=== PATIENT | male | born 1960 | race Two or more races ===

== ENCOUNTER 2016-08-09 02:19 | Inpatient (IN) | payer MEDICAID ==
[~2016-08-09] VITALS: Ht 172.7 cm; Wt 146.1 kg
--- NOTE | 2016-08-09 02:40 | NUR ---
PT BIBRA FROM HOME W/ CP OF R FOOT TENDERNESS, L LAT ABD PAIN AND L LATERAL CHEST PAIN WHEN PRESSURE IS APPLIED OF 5/10, NON RADIATING. STATES THAT PAIN HAS BEEN THERE SINCE YESTERDAY AM. A/OX4. ON MONITOR W/ SR 70'S. DENIES ANY PALPITATIONS, DIZZINESS OR N/V. DR CARRIZALES AT [facility] FOR EVALUATION.
--- NOTE | 2016-08-09 02:50 | NUR ---
Kodi rodriguez in [place] - 08/09/16 at 0305 by SCARLET RADHA MEADOWS IN [place] [address] G[address] ARORA
--- NOTE | 2016-08-09 02:50 | NUR ---
INSERT IV IN R AC 18 G. TOLERATED WELL.
[2016-08-09 02:57] LABS: BASOPHILS % (AUTO) 0.8 % (0.0-2.0); EOSINOPHILS # (AUTO) 0.3 /CMM (0.0-0.7); EOSINOPHILS % (AUTO) 4.3 % (0.0-6.0); HEMATOCRIT 28 % (39-51); LYMPHOCYTES # (AUTO) 1.1 /CMM (0.8-4.8); LYMPHOCYTES % (AUTO) 19.1 % (20.0-44.0); MEAN CORPUSCULAR HEMOGLOBIN 28 PG (26.0-33.0); MEAN CORPUSCULAR HGB CONC 32 g/dl (31.0-36.0); MEAN CORPUSCULAR VOLUME 87 fL (80-96); MONOCYTES # (AUTO) 0.7 /CMM (0.1-1.30); MONOCYTES % (AUTO) 11.6 % (2.0-12.0); NEUTROPHILS # (AUTO) 3.8 /CMM (1.8-8.9); NEUTROPHILS % (AUTO) 64.2 % (43.0-81.0); PLATELET COUNT (AUTO) 159 /CMM (150-450); RDW COEFFICIENT OF VARIATION 16.2 (11.5-15.0); WHITE BLOOD COUNT (AUTO) 5.9 K/uL (4.3-11.0)
--- NOTE | 2016-08-09 03:00 | NUR ---
RADIOLOGY AT BEDSIDE FOR CXR
[2016-08-09 03:06] LABS: CALCIUM, SERUM 8.8 mg/dL (8.5-10.1); CARBON DIOXIDE 21 mmol/L (21-32); CHLORIDE 101 mmol/L (98-107); CREATININE 1.8 mg/dL (0.6-1.3); GFR 39 mL/min (>60); GLUCOSE 99 mg/dL (74-106); POTASSIUM 4.2 mmol/L (3.5-5.1); SODIUM SERUM 134 mmol/L (136-145); UREA NITROGEN, BLOOD 18 mg/dL (7-18)
[2016-08-09 03:14] LABS: INR 1.11 (0.87-1.13)
[2016-08-09 03:16] LABS: TROPONIN I < 0.017 ng/mL (0.00-0.056)
[2016-08-09 03:18] LABS: ALANINE AMINOTRANSFERASE 54 U/L (12-78); ALBUMIN 2.7 g/dL (3.4-5.0); ALKALINE PHOSPHATASE 628 U/L (46-116); ASPARTATE AMINOTRANSFERASE 74 U/L (15-37); B-TYPE NATRIURETIC PEPTIDE 111 PG/ML (0-125); BILIRUBIN,DIRECT 0.3 mg/dL (0.0-0.2); BILIRUBIN,TOTAL 0.8 mg/dL (0.2-1.0); TOTAL PROTEIN, SERUM 7.5 g/dL (6.4-8.2)
--- NOTE | 2016-08-09 03:34 | NUR ---
TELE/RN NOTES RECEIVED REPORT FROM DAIRY BACTERIOLOGIST FOR PATIENT 54 YO OBESE MALE WHO CAME TO ER FOR LEFT SIDE CHEST PAIN W/ PRESSURE AND COMPALINED OF LEFT ABD PAIN AND CHRONIC LOWER EXTREMITY LEFT FOOT PAIN. W/ HX OF HLD, LIVER CIRRHOSIS, CANCER, HTN HX GI BLEED. DR URENA, [facility] RECEIVED. TROPONIN LEVEL 0.17 NORMAL,EKG NSR 67 BPM, CHEST XRAY PENDING, ON TELE, USES URINAL. ALERT,ORIENTED X4. WITH IV ON RIGHT AC.
--- NOTE | 2016-08-09 03:35 | NUR ---
TELE/RN NOTES PATIENT IS ALERT, ORIENTEDX3, ABLE TO VERBALIZE NEEDS ACCOMPANIED BY FAMILY MEMBER. ROOM ORIENTATION PROVIDED,SIDE RAIL, SKIN BODY ASSESSMENT, BELONGINGS CHECKED, NO S/S OF SOB OR DISCOMFORT, NO PAIN OBSERVED ABD VERBALIZED. MD TO PRISCILLA FOR HOME MEDICATION RECONCILIATION OF ORDER WILL REVIEW PER MD. REQUIRE WOUND CONSULT , PT [email or web address].WILL CONTINUE TO MONITOR.
--- NOTE | 2016-08-09 03:35 | NUR ---
REPORT GIVEN TO BILLY FOLEY FOR CONTINUATION OF CARE.
--- NOTE | 2016-08-09 03:47 | NUR ---
TRANSFERRED PT VIA TAIRTONY TO RM 312-2 ON ACLS PROTOCOL IN STABLE CONDITION
[2016-08-09] MEDS ORDERED: FURO40TA5 PO (04:28)
[2016-08-09] MEDS ORDERED: ZINC220C6 PO (04:28)
[2016-08-09] MEDS ORDERED: SPIR100T3 PO (04:28)
[2016-08-09] MEDS ORDERED: PROP10TA10 PO (04:28)
[2016-08-09] MEDS ORDERED: POLY17PO4 PO (04:28)
[2016-08-09] MEDS ORDERED: SENN8.6T6 PO (04:28)
[2016-08-09] MEDS ORDERED: LEVE500T9 PO (04:28)
[2016-08-09] MEDS ORDERED: LACT10SO PO (04:28)
[2016-08-09] MEDS ORDERED: PANT40TA4 PO (04:28)
[2016-08-09] MEDS ORDERED: AMLO10TA2 PO (04:28)
[2016-08-09 04:34] VITALS: BP 98/55
--- NOTE | 2016-08-09 05:00 | NUR ---
TELE/RN NOTES MD CONTACTED FOR RECONCILIATION OF HOME MEDS AND ORDER.
[2016-08-09] MEDS ORDERED: DOCUSATE SODIUM 100 MG CAPSULE PO PRN (06:00)
[2016-08-09] MEDS ORDERED: NITROGLYCERIN 0.4 MG/TAB BOTTLE SL PRN (06:00)
[2016-08-09] MEDS ORDERED: MORPHINE SULFATE INJ 2 MG/ML DISP.SYRIN IV PRN ×2 (06:00)
[2016-08-09 06:01] LABS: IRON, SERUM 30 ug/dl (50-175); TOTAL IRON BINDING CAPACITY 291 ug/dl (250-450)
--- NOTE | 2016-08-09 07:00 | NUR ---
TELE/RN NOTES PATIENT IN BED, AWAKE, ALERT X3, ABLE TO VERBALIZE NEEDS. PROVIDED COMFORT. NO S/S OF SOB OR DISTRESS. CALL LIGHTS WITHIN REACH. ENDORSE TO M RN ALEX.
--- NOTE | 2016-08-09 07:23 | NUR ---
MACHINE PLASTER MIXER OPENING NOTES RECEIVED PT FROM NIGHTSHIFT NURSE IN STABLE CONDITION. PT. AWAKE AND RESTING IN BED. A/O X4. NO SOB OR SIGNS OF DISTRESS NOTED. NO COMPLAINTS OF CHEST PAIN AT THIS TIME. ON TELE MONITOR READING SINUS RHYTHM, HR 80. IV ON RIGHT AC 18G INTACT AND PATENT. WILL CONTINUE TO MONITOR.
[2016-08-09 07:27] VITALS: BP 132/62
[2016-08-09 08:00] VITALS: BP 132/69
--- NOTE | 2016-08-09 08:24 | NUR ---
WOUND CARE CONSULT: PATIENT SEEN AND SKIN ASSESSMENT DONE. PATIENT ALERT, ORIENTED, INDEPENDENT WITH BED MOBILITY, GUERO 16, WEIGHS 322 LBS, BARIMAXX BED ORDERED. SEE TODAY'S SKIN ASSESSMENT IN PCS ALONG WITH RECOMMENDATIONS DISCUSSED WITH NURSING STAFF INCLUDING MOISTURE PROTECTION WITH Z GUARD ORDERED. MD IN AGREEMENT WITH PLAN OF CARE. Addendum: 08/09/16 at 0826 by CHERELLE LAWSON WNDNU Amended: Links added.
[2016-08-09] MEDS ORDERED: Z GUARD REMEDY 2 OZ OINT TP PRN (08:30)
[2016-08-09] MEDS: LACTULOSE 10 G/15 ML UDC (PYXIS) PO SCH ×4 (08:47→21:10)
[2016-08-09] MEDS: PANTOPRAZOLE 40 MG TABLET.DR PO SCH ×2 (08:49→21:10)
[2016-08-09] MEDS: LEVETIRACETAM (250 MG) 250 MG TABLET PO SCH ×2 (08:49→21:10)
[2016-08-09] MEDS: SPIRONOLACTONE 25 MG TABLET PO SCH (08:51)
[2016-08-09] MEDS: AMLODIPINE BESYLATE 10 MG TABLET PO SCH (08:53)
[2016-08-09] MEDS: ZINC SULFATE 220 MG CAPSULE PO SCH (08:54)
[2016-08-09] MEDS: POLYETHYLENE GLYCOL 3350 17 GM POWD.PACK PO SCH (08:54)
[2016-08-09] MEDS: SENNOSIDES 8.6 MG TABLET PO SCH (08:54)
[2016-08-09] MEDS ORDERED: ASPIRIN 81 MG TAB.CHEW PO SCH (09:00)
[2016-08-09] MEDS: PROPRANOLOL HCL 10 MG TABLET PO SCH ×2 (09:00→17:25)
[2016-08-09 11:50] LABS: GAMMA GLUTAMYL TRANSFERASE 471 U/L (5-85); PROSTATE SPECIFIC ANTIGEN SCR < 0.13 ng/mL (0.00-4.00)
[2016-08-09 12:00] VITALS: BP 100/62
--- NOTE | 2016-08-09 13:17 | NUR ---
PT IS TOO LARGE TO FIT INTO CT SCANNER, RN IS AWARE.
--- NOTE | 2016-08-09 13:24 | NUR ---
CONTINUOUS MINING MACHINE COMPANY MINER NOTES CT SCAN WAS CANCELLED. PT COULD NOT FIT IN MACHINE. DR. WONG WAS MADE AWARE. WILL CONTINUE TO MONITOR.
[2016-08-09] MEDS ORDERED: IV SET PRIMARY PUMP SET 1 EA INFUS.SET MC ONE (13:34)
[2016-08-09] MEDS: Z GUARD REMEDY 2 OZ OINT TP SCH ×2 (14:25→17:24)
[2016-08-09] MEDS: SOD FERRIC GLUC 125 MG in IV NS 0.9% 100 ML IV SCH (14:25)
[2016-08-09 16:00] VITALS: BP 98/60
--- NOTE | 2016-08-09 18:40 | NUR ---
BANK CASHIER CLOSING NOTES PT IN STABLE CONDITION, SITTING IN BED. A/O X4. NO SOB OR SIGNS OF DISTRESS NOTED. NO COMPLAINTS OF CHEST PAIN AT THIS TIME. ON TELE MONITOR READING SINUS RHYTHM, HR 79. IV ON RIGHT AC 18G INTACT AND PATENT. BARIMAX BED IN LOW LOCKED POSITION, SIDE RAILS UP X2, CALL LIGHT WITHIN PT. REACH. ALL SAFETY NEEDS WERE ENFORCED THROUGHOUT SHIFT. ALL ORDERS WERE CARRIED OUT DURING SHIFT. WILL ENDORSE TO NIGHTSHIFT NURSE FOR ALEX .
--- NOTE | 2016-08-09 19:35 | NUR ---
VIDEOGAME TESTER NOTE RECEIVED PATIENT FRO DAY SHIFT, PATIENT IS ALERT AND ORIENTEDX4, DENIES SOB OR PAIN AT THIS TIME. IV ON RIGHT AC IS PATENT AND INTACT, HL. TELE MONITOR SR WITH PVX 76. LEXISCAN DUE TOMORROW, CONSENT SIGNED. PATIENT IS NOW ON A BARIATRIC BED. SRX2, BED IN LOW POSITION, CALL LIGHT WITHIN REACH, WILL CONTINUE TO MONITOR PATIENT.
[2016-08-09 20:00] VITALS: BP 92/52
[2016-08-09] MEDS: SIMVASTATIN 20 MG TABLET PO SCH (21:11)
--- NOTE | 2016-08-09 21:30 | NUR ---
HYDROGEN POWER PLANT MANAGER NOTE DUE MEDS GIVEN, AND REPORT GIVEN TO BILLY COLON FOR ALEX DUE TO CHANGE OF ASSIGNMENT.
--- NOTE | 2016-08-09 21:35 | NUR ---
RELATIONS MGR NOTES: RECEIVED PATIENT DUE TO CHANGE OF ASSIGNMENT FROM RN CHELSEA PACE. PT IS A/O X4 AND IS LAYING IN BED. ON TELE MONITOR AND IS SINUS RHYTHM; PVC @76. PT KEPT CLEAN, DRY, AND COMFORTABLE. CALL LIGHT WITHIN PT'S REACH. BED IN LOCKED, LOWEST POSITION, AND SIDE RAILS X2 UP. NO SOB OR SIGNS AND SYMPTOMS OF DISTRESS NOTED. IV ON R AC #18G AND IS PATENT AND INTACT. PT ON NS 75 ML/HR. PT IS NPO POST MIDNIGHT. WILL CONTINUE TO MONITOR PT.
[2016-08-09] MEDS: IV NS 0.9% 1,000 ML IV PRN (23:50)
[2016-08-10] VITALS (7 sets, daily range): BP systolic 94–137; BP diastolic 53–77
[2016-08-10 06:53] LABS: BASOPHILS % (AUTO) 1.2 % (0.0-2.0); EOSINOPHILS # (AUTO) 0.2 /CMM (0.0-0.7); EOSINOPHILS % (AUTO) 4.4 % (0.0-6.0); HEMATOCRIT 26 % (39-51); HEMOGLOBIN 8.5 g/dL (13.5-17.5); LYMPHOCYTES # (AUTO) 0.7 /CMM (0.8-4.8); MEAN CORPUSCULAR HEMOGLOBIN 29 PG (26.0-33.0); MEAN CORPUSCULAR HGB CONC 33 g/dl (31.0-36.0); MEAN CORPUSCULAR VOLUME 87 fL (80-96); MONOCYTES # (AUTO) 0.5 /CMM (0.1-1.30); MONOCYTES % (AUTO) 11.6 % (2.0-12.0); NEUTROPHILS # (AUTO) 2.7 /CMM (1.8-8.9); NEUTROPHILS % (AUTO) 64.8 % (43.0-81.0); PLATELET COUNT (AUTO) 123 /CMM (150-450); RDW COEFFICIENT OF VARIATION 16.2 (11.5-15.0); WHITE BLOOD COUNT (AUTO) 4.2 K/uL (4.3-11.0)
--- NOTE | 2016-08-10 07:01 | NUR ---
FUR REPAIR INSPECTOR CLOSING NOTES: PATIENT LAYING IN BED AWAKE. NO SIGNS OR SYMPTOMS OF DISTRESS OR SOB NOTED. ON TELE MONITOR AND IS SINUS RHYTHM @82. PT KEPT CLEAN, DRY, AND COMFORTABLE. CALL LIGHT WITHIN PT'S REACH. BED KEPT IN LOCKED, LOWEST POSITION, AND SIDE RAILS X2 UP. PT ON BARAITRIC BED. IV ON R AC #18G AND IS PATENT AND INTACT. L[place]ISCAN DUE THIS MORNING. CONSENT HAS BEEN SIGNED. WILL ENDORSE TO AM NURSE FOR CONTINUITY OF CARE.
--- NOTE | 2016-08-10 07:13 | NUR ---
GRINDER GEAR OPENING NOTES RECEIVED PATIENT AWAKE IN BED IN NO ACUTE SIGNS OF DISTRESS. ALERT AND ORIENTED X4. ABLE TO VERBALIZED NEEDS, NO COMPLAINTS OF PAIN OR DISCOMFORTS AT THIS TIME. ON TELE MONITORING WITH READINGS OF SINUS RHYTHM, HR 78. NO COMPLAINTS OF CHEST PAIN. IV ON RIGHT AC 18G INTACT AND PATENT WITH IVF OF NS AT 75ML/HR INFUSING WELL, NO SIGNS OF INFILTRATION NOTED. PATIENT IS ON NPO FOR STRESS TEST THIS MORNING. CALL LIGHT WITHIN REACH. BED LOCKED AND AT LOWEST POSSIBLE POSITION. WILL CONTINUE TO MONITOR ACCORDINGLY.
[2016-08-10 07:15] LABS: ALBUMIN 2.5 g/dL (3.4-5.0); BILIRUBIN,TOTAL 0.7 mg/dL (0.2-1.0); CALCIUM, SERUM 8.5 mg/dL (8.5-10.1); CREATININE 1.5 mg/dL (0.6-1.3); MAGNESIUM 1.8 mg/dL (1.8-2.4); PHOSPHORUS 4.4 mg/dL (2.5-4.9); POTASSIUM 3.8 mmol/L (3.5-5.1); TOTAL PROTEIN, SERUM 7.1 g/dL (6.4-8.2)
[2016-08-10 07:21] LABS: INR 1.11 (0.87-1.13)
[2016-08-10] MEDS ORDERED: REGADENOSON 0.4 MG/5 ML DISP.SYRIN IVP ONE (08:00)
[2016-08-10] MEDS: SENNOSIDES 8.6 MG TABLET PO SCH (10:51)
[2016-08-10] MEDS: LEVETIRACETAM (250 MG) 250 MG TABLET PO SCH ×2 (10:59→22:07)
[2016-08-10] MEDS: SPIRONOLACTONE 25 MG TABLET PO SCH (10:59)
[2016-08-10] MEDS: ZINC SULFATE 220 MG CAPSULE PO SCH (11:00)
[2016-08-10] MEDS: AMLODIPINE BESYLATE 10 MG TABLET PO SCH (11:00)
[2016-08-10] MEDS: PANTOPRAZOLE 40 MG TABLET.DR PO SCH ×2 (11:00→22:08)
[2016-08-10] MEDS: PROPRANOLOL HCL 10 MG TABLET PO SCH ×2 (11:01→16:14)
[2016-08-10] MEDS: Z GUARD REMEDY 2 OZ OINT TP SCH ×2 (11:02→16:15)
[2016-08-10] MEDS: POLYETHYLENE GLYCOL 3350 17 GM POWD.PACK PO SCH (11:02)
[2016-08-10] MEDS: LACTULOSE 10 G/15 ML UDC (PYXIS) PO SCH ×4 (11:07→22:07)
--- NOTE | 2016-08-10 12:54 | NUR ---
NM: CARDIAC MPI WAS COMPLETED.TECH:RB.
--- NOTE | 2016-08-10 14:49 | NUR ---
RN NOTES PATIENT WENT FOR STRESS TEST THIS MORNING, RESULTS SENT BY RADIOLOGIST TO DR WHEELER. PATIENT HAD NO COMPLAINTS POST STRESS TEST. WILL CONTINUE TO MONITOR.
[2016-08-10] MEDS: SOD FERRIC GLUC 125 MG in IV NS 0.9% 100 ML IV SCH (15:06)
--- NOTE | 2016-08-10 18:49 | NUR ---
MS RN CLOSING NOTES PATIENT IN BED WITH FAMILY AT BEDSIDE. ALERT AND ORIENTED X 4, NO COMPLAINTS OF PAIN OR DISCOMFORTS THROUGHOUT THE DAY. TELE-MONITORING WAS DISCONTINUED THIS MORNING, DENIES ANY CHEST PAIN. IVF OF NS @ 75ML/HR IN PROGRESS, NO S/S OF INFILTRATION TO IV SITE NOTED. ALL NEEDS AND CARE WELL PROVIDED. DUE MEDS GIVEN ORDERED. CALL LIGHT WITHIN REACH. ALL SAFETY MEASURES IN PLACE. WILL ENDORSED TO WHEEL PRESSER NURSE FOR ALEX.
--- NOTE | 2016-08-10 19:30 | NUR ---
RN OPENING NOTES RECEIVED PATIENT AWAKE IN BED IN NO ACUTE SIGNS OF DISTRESS. ALERT AND ORIENTED X4. ABLE TO VERBALIZED NEEDS, NO COMPLAINTS OF PAIN OR DISCOMFORTS AT THIS TIME. IV ON RIGHT AC 18G INTACT AND PATENT WITH IVF OF NS AT 75ML/HR INFUSING WELL, NO SIGNS OF INFILTRATION NOTED. CALL LIGHT WITHIN REACH. BED LOCKED AND AT LOWEST POSSIBLE POSITION. WILL CONTINUE TO MONITOR ACCORDINGLY.
[2016-08-10] MEDS: IV NS 0.9% 1,000 ML IV PRN (19:47)
[2016-08-10] MEDS: SIMVASTATIN 20 MG TABLET PO SCH (22:07)
--- NOTE | 2016-08-11 04:00 | NUR ---
MS RN NOTE PATIENT'S IV INFILTRATED. PATIENT IS REFUSING TO HAVE OLD IV REMOVED AND NEW IV INSERTED. EDUCATED PT. ON BENEFITS. CONTINUES TO REFUSE. WILL TRY AGAIN LATER.
--- NOTE | 2016-08-11 06:16 | NUR ---
MS RN NOTE PATIENT STABLE. RESTING AT THIS TIME. NO S/S OF PAIN OR DISCOMFORT. CONTINUES TO REFUSE INSERTION OF NEW IV. KEPT CLEAN, DRY AND COMFORTABLE. WILL ENDORSE TO DAY SHIFT FOR ALEX.
--- NOTE | 2016-08-11 07:45 | NUR ---
MS RN OPENING NOTE PATIENT IS ALERT AND ORIENTED x4. NO PAIN AT THIS TIME. NO SOB OR DISTRESS NOTED. CALL LIGHT WITHIN REACH. SAFETY MEASURES IMPLEMENTED. ENDORSED THAT PATIENT REFUSES NEW IV INSERTION, WILL TRY ON MY SHIFT TO INSERT NEW IV. ABLE TO MAKE NEEDS KNOWN. WILL CONTINUE TO MONITOR
[2016-08-11 08:00] VITALS: BP 100/62
[2016-08-11] MEDS: SPIRONOLACTONE 25 MG TABLET PO SCH (08:37)
[2016-08-11] MEDS: PANTOPRAZOLE 40 MG TABLET.DR PO SCH ×2 (08:37→20:55)
[2016-08-11] MEDS: PROPRANOLOL HCL 10 MG TABLET PO SCH ×2 (08:37→16:38)
[2016-08-11] MEDS: ZINC SULFATE 220 MG CAPSULE PO SCH (08:37)
[2016-08-11] MEDS: SENNOSIDES 8.6 MG TABLET PO SCH (08:37)
[2016-08-11] MEDS: LEVETIRACETAM (250 MG) 250 MG TABLET PO SCH ×2 (08:37→20:55)
[2016-08-11] MEDS: AMLODIPINE BESYLATE 10 MG TABLET PO SCH (08:38)
[2016-08-11] MEDS: Z GUARD REMEDY 2 OZ OINT TP SCH ×2 (08:38→17:17)
[2016-08-11] MEDS: POLYETHYLENE GLYCOL 3350 17 GM POWD.PACK PO SCH (08:38)
[2016-08-11] MEDS: LACTULOSE 10 G/15 ML UDC (PYXIS) PO SCH ×4 (08:59→20:55)
--- NOTE | 2016-08-11 10:04 | NUR ---
MS RN NOTE POSSIBLE DISCHARGE TODAY
[2016-08-11 14:13] LABS: PTH, INTACT 15 pg/mL (15-65)
[2016-08-11] MEDS: SOD FERRIC GLUC 125 MG in IV NS 0.9% 100 ML IV SCH (14:13)
[2016-08-11 16:00] VITALS: BP_SYST 106; BP_SYST 181; BP_DIAS 48; BP_DIAS 85
--- NOTE | 2016-08-11 16:30 | NUR ---
MS RN NOTE HELD BLOOD PRESSURE MEDICATION DUE TO BP BEING LOW. WILL MONITOR PATIENT AND WILL ENDORSE TO WELFARE VISITOR NURSE
--- NOTE | 2016-08-11 18:24 | NUR ---
MS RN CLOSING NOTE PATIENT IS ALERT AND ORIENTED x4. NO PAIN AT THIS TIME. NO SOB OR DISTRESS NOTED. ALL DUE MEDICATIONS GIVEN ORDERED. SAFETY MEASURES IMPLEMENTED. POSSIBLE DISCHARGE TOMORROW. NO SIGNIFICANT CHANGES THROUGHOUT SHIFT. WILL ENDORSE TO PAPERBOARD MACHINE OPERATOR NURSE.
[2016-08-11 19:00] VITALS: BP 99/52
[2016-08-11 20:00] VITALS: BP 99/52
--- NOTE | 2016-08-11 21:01 | NUR ---
MS/RN NOTE: REFUSED LACTULOSE PO, STATED THAT HE HAD ALOT OF BOWEL MOVEMENT YESTERDAY 08/10
[2016-08-11] MEDS: SIMVASTATIN 20 MG TABLET PO SCH (21:20)
[2016-08-12] VITALS: BP 177/83
--- NOTE | 2016-08-12 07:05 | NUR ---
MS RN OPENING NOTES RECEIVED PT FROM NIGHTSHIFT NURSE IN STABLE CONDITION AWAKE AND IN BED. A/O X4. NO SOB OR SIGNS OF DISTRESS NOTED. NO COMPLAINTS OF CHEST PAIN OR ABDOMINAL AT THIS TIME. IV ON LEFT WRIST 22G INTACT AND PATENT. NO REDNESS OR INFILTRATION NOTED. WILL CONTINUE TO MONITOR.
[2016-08-12 08:00] VITALS: BP 100/54
[2016-08-12] MEDS: LEVETIRACETAM (250 MG) 250 MG TABLET PO SCH (08:49)
[2016-08-12] MEDS: PANTOPRAZOLE 40 MG TABLET.DR PO SCH (08:49)
[2016-08-12] MEDS: SPIRONOLACTONE 25 MG TABLET PO SCH (08:49)
[2016-08-12] MEDS: ZINC SULFATE 220 MG CAPSULE PO SCH (08:49)
[2016-08-12] MEDS: LACTULOSE 10 G/15 ML UDC (PYXIS) PO SCH ×2 (08:49→13:00)
[2016-08-12 08:50] VITALS: BP 110/59
[2016-08-12] MEDS: AMLODIPINE BESYLATE 10 MG TABLET PO SCH (08:50)
[2016-08-12] MEDS: PROPRANOLOL HCL 10 MG TABLET PO SCH (08:50)
[2016-08-12] MEDS: POLYETHYLENE GLYCOL 3350 17 GM POWD.PACK PO SCH (08:50)
[2016-08-12] MEDS: SENNOSIDES 8.6 MG TABLET PO SCH (08:51)
[2016-08-12] MEDS: Z GUARD REMEDY 2 OZ OINT TP SCH (08:52)
--- NOTE | 2016-08-12 15:25 | NUR ---
MS RN NOTES PT. WAS WHEELED OFF THE UNIT IN STABLE CONDITION ACCOMPANIED BY EVY AND HIS SISTER FUNMILAYO. LEFT THE HOSPITAL SAFELY IN A PRIVATE VEHICLE.
[2016-08-13 08:08] LABS: *SPE A/G RATIO 0.7 (0.7-1.7); *SPE ALBUMIN 2.7 g/dL (2.9-4.4); *SPE ALPHA-1-GLOBULIN 0.2 g/dL (0.0-0.4); *SPE ALPHA-2-GLOBULIN 0.5 g/dL (0.4-1.0); *SPE BETA GLOBULIN 1.2 g/dL (0.7-1.3); *SPE GLOBULIN, TOTAL 3.8 g/dL (2.2-3.9); *SPE M-SPIKE Not Observed g/dL (Not Observed); *SPE PROTEIN TOTAL 6.5 g/dL (6.0-8.5); *SPEGAMMA GLOBULIN 1.9 g/dL (0.4-1.8)
== END 2016-08-12 15:30 | disposition home health service (06) | DRG 203 ==
LOC: ER 02:27 → TELE 03:18 → MED 08-10 09:12
PROVIDERS: ADMIT Internal Medicine; ATTEND Nurse Practitioner Acute Care
DX: M94.0 Chondrocostal junction syndrome [Tietze] (principal); N17.0 Acute kidney failure with tubular necrosis; E43 Unspecified severe protein-calorie malnutrition; K74.60 Unspecified cirrhosis of liver; F12.90 Cannabis use, unspecified, uncomplicated; D50.9 Iron deficiency anemia, unspecified; I12.9 Hypertensive chronic kidney disease with stage 1 through stage 4 chronic kidney disease, or unspecified chronic kidney disease; R07.9 Chest pain, unspecified; Z68.42 Body mass index [BMI] 45.0-49.9, adult; E66.01 Morbid (severe) obesity due to excess calories; G40.909 Epilepsy, unspecified, not intractable, without status epilepticus; G47.33 Obstructive sleep apnea (adult) (pediatric); G62.9 Polyneuropathy, unspecified; Z85.6 Personal history of leukemia; R10.9 Unspecified abdominal pain; N18.9 Chronic kidney disease, unspecified; E78.5 Hyperlipidemia, unspecified; E78.00 Pure hypercholesterolemia, unspecified
CPT/HCPCS: 36415; 71010-TC; 76705-TC; 80048-TC; 80053-TC; 80061-TC; 80076-TC; 82140-TC; 82150-TC; 82550-TC; 82977-TC; 83540-TC; 83615-TC; 83690-TC; 83735-TC; 83880; 83970; 84100-TC; 84153-TC; 84155; 84165; 84484-TC; 85025-TC; 85610-TC; 85730-TC; 87081-TC; 93307-TC; 97001-TC; A4606; A9502; J2785; J2916; J7030; Z7610

== ENCOUNTER 2016-09-01 12:03 | Emergency (ER) | payer MEDICAID ==
[~2016-09-01] VITALS: Ht 177.8 cm; Wt 127.0 kg
[~2016-09-01 12:03] MED LIST: AMLO10TA2 PO; FURO40TA5 PO; LACT10SO PO; LEVE500T9 PO; PANT40TA4 PO; POLY17PO4 PO; PROP10TA10 PO; SENN8.6T6 PO; SPIR100T3 PO; ZINC220C6 PO
[2016-09-01] MEDS ORDERED: IBUPROFEN 400 MG TABLET ONE (12:09)
[2016-09-01] MEDS ORDERED: IBUPROFEN 400 MG TABLET PO ONE (12:30)
--- NOTE | 2016-09-01 13:00 | NUR ---
CALLED [facility] FOR AMBULANCE ETA 1 HOUR
--- NOTE | 2016-09-01 13:30 | NUR ---
SPOKE WITH PATIENTS SISTER ADA [phone] AND SHE WILL BE GOING TO HIS HOME TO LET HIM IN
[2016-09-01 14:36] VITALS: BP 149/73
--- NOTE | 2016-09-01 14:39 | NUR ---
CALLED [facility] SISTER TO INFORM AMBULANCE IS HERE TO TAKE HIM HOME
== END 2016-09-01 14:40 | disposition home or self-care (01) ==
LOC: ER 12:05
DX: S92.002A Unspecified fracture of left calcaneus, initial encounter for closed fracture (principal); I10 Essential (primary) hypertension; Z85.6 Personal history of leukemia; X58.XXXA Exposure to other specified factors, initial encounter; Y93.89 Activity, other specified; Y92.89 Other specified places as the place of occurrence of the external cause; Y99.9 Unspecified external cause status
CPT/HCPCS: 29515; 73610; 99284; A4606

== ENCOUNTER 2016-09-01 16:17 | Emergency (ER) | payer MEDICAID ==
[~2016-09-01] VITALS: Ht 177.8 cm; Wt 138.8 kg
[2016-09-01 16:23] VITALS: BP 99/50
--- NOTE | 2016-09-01 16:33 | NUR ---
PER SISTER DOESNT WANT TO BE SEEN ANYMORE. PATIENT TAKEN PT TO ANOTHER HOSPITAL. PT LEFT VIA PRIVATE CAR
== END 2016-09-01 16:37 | disposition left against medical advice (07) ==
LOC: ER 16:19
DX: Z53.21 Procedure and treatment not carried out due to patient leaving prior to being seen by health care provider (principal)
CPT/HCPCS: A4606; Z7610